=== PATIENT | female | born 1990 | race Caucasian/White ===

== ENCOUNTER 2024-12-17 05:50 | Observation (INO) ==
--- NOTE | 2024-12-14 09:18 | Anesthesiology Consultation ---
Date of Service December 14, 2024 Assessment & Plan (1) Encounter for pre-operative examination: Infectious disease screening: Per assessment on 12/14/24- No known recent infectious disease contacts or current infectious disease symptoms. Chart Review Chart Review: Acceptable Risk for Surgery (pending PAT RN Phone interview) and Patient NOT seen in Pre Admission Testing History Surgery Operation Date: 12/17/24 07:30 Proposed Procedures p Bilateral Mastectomy with Free Nipple Grafting with Suction Assisted Lipectomy of Lateral Chest - Sadaf Guy MD Height/Weight Height: 5 ft 10 in Weight: 98.883 kg Allergies Allergy/AdvReac Type Severity Reaction Status Date / Time tree nut Allergy Intermediate Nausea, Verified 12/14/24 09:50 vomiting Medications Home Medications Medication Instructions Recorded Confirmed Last Taken fluoride (sodium) 1.1 % dental 1 applic dental DAILY 05/31/23 12/14/24 Unknown cream (Denta 5000 Plus) levocetirizine 5 mg tablet 5 mg PO HS 05/31/23 12/14/24 Unknown testosterone cypionate 200 mg/mL 100 mg subcut Q7D 05/31/23 12/14/24 12/09/24 intramuscular oil Past Medical History Medical History [id number] transgender person Seasonal allergies Past Surgical History Surgical History History of wisdom tooth extraction 2014 History of wrist fracture "In Kindergarten, I broke my wrist and they had to put me under to re-break it" Social History Smoking Status: Current some day smoker Smoking cigarettes per day: 1-2 when drinking Hx Alcohol Use: Yes Hx Substance Use: Yes (Quit 8 years ago) Lab Results Anesthesia Preop Results Results Anesthesia Widget: WBC 6.76 K/ul (4.8-10.8) 11/26/24 Hgb 16.1 g/dl (12.0-16.0) H 11/26/24 Hct 44.9 % (37.0-47.0) 11/26/24 Plt 237 K/uL (130-400) 11/26/24 Na 139 mmol/L (136-145) 11/26/24 K 3.9 mmol/L (3.5-5.1) 11/26/24 Cl 106 mmol/L (98-107) 11/26/24 CO2 28 mmol/L (21-32) 11/26/24 BUN 10 mg/dl (6-23) 11/26/24 Creat 0.89 mg/dl (0.6-1.2) 11/26/24 Glucose Level 91 mg/dl (70-99(Fasting)) 11/26/24 PT 10.3 Seconds (9.0-12.0) 11/26/24 INR 0.9 (0.9-1.1) 11/26/24
--- NOTE | 2024-12-17 06:47 | History & Physical Bridge Note ---
Date of Service December 17, 2024 History & Physical Bridge Note I have examined the patient, reviewed the History & Physical and in the interval since the performance of the History & Physical I have noted the following changes of clinical significance: no changes noted
[2024-12-17] MEDS ORDERED: ATROPINE SULFATE 0.1 MG/ML 10ML SYR IV PRN (06:51)
[2024-12-17] MEDS ORDERED: PROMETHAZINE HCL 6.25 MG in SODIUM CHLORIDE 0.9% 50 ML IV PRN (06:51)
[2024-12-17] MEDS ORDERED: ONDANSETRON INJ 2 MG/ML 2 ML VIAL IV PRN (06:51)
[2024-12-17] MEDS ORDERED: HYDROmorphone INJ 1 MG/ML SYRINGE IV PRN (06:51)
[2024-12-17] MEDS ORDERED: MIDAZOLAM HCL 1 MG/ML 2ML VIAL ONE (06:54)
[2024-12-17] MEDS ORDERED: ROCURONIUM BROMIDE 10 MG/ML 5 ML VIAL IV ONE (06:54)
[2024-12-17] MEDS ORDERED: PROPOFOL IV EMULSION 10 MG/ML 20 ML VIAL IV ONE (06:54)
[2024-12-17] MEDS ORDERED: ONDANSETRON INJ 2 MG/ML 2 ML VIAL ONE (06:54)
[2024-12-17] MEDS ORDERED: DEXAMETHASONE SOD INJ 4 MG/ML VIAL ONE (06:54)
[2024-12-17] MEDS ORDERED: GLYCOPYRROLATE 0.2 MG/ML VIAL ONE (06:54)
[2024-12-17] MEDS ORDERED: LIDOCAINE 2% 2 ML VIAL/AMP(20MG/ML) INFIL ONE (06:54)
[2024-12-17] MEDS ORDERED: SUGAMMADEX SODIUM 200 MG/2 ML VIAL IV ONE (06:56)
[2024-12-17] MEDS: LR 15ML/HR IV SCH (07:03)
[2024-12-17] MEDS ORDERED: DexMEDEtomidine HCL IV 100 MCG/ML VIAL IV ONE (07:03)
[2024-12-17] MEDS ORDERED: KETAMINE HCL 10MG/ML SYR ONE (07:03)
[2024-12-17] MEDS ORDERED: BUPIVACAINE 0.5 % 5 MG/1 ML PF 10ML VIAL ONE (07:19)
[2024-12-17] MEDS: TRANEXAMIC ACID 1,000 MG **IV Pre-op IV SCH (07:40)
[2024-12-17] MEDS: EPINEPHrine INJ 1 MG/ML AMP ONE (09:35)
[2024-12-17] MEDS: LIDOCAINE 1% LOCAL 20 ML VIAL ONE (09:36)
[2024-12-17] MEDS: BUPIVACAINE 0.25% PF 30 ML VIAL ONE (09:37)
--- NOTE | 2024-12-17 10:27 | Post Operative Brief Note ---
PG Immediate Post Op with CF Date of Surgery December 17, 2024 Pre & Post Diagnosis Operation Date: 12/17/24 07:30 Pre-Op Diagnosis: Gender Affirming Surgery Post-Op Diagnosis: Gender Affirming Surgery I identified the patient and participated in the time-out.: Yes Procedure Operation Date: 12/17/24 07:30 Actual Procedures p Bilateral Mastectomy with Free Nipple Grafting with Suction Assisted Lipectomy of Lateral Chest(Bilateral) - Sadaf Guy MD Surgeon Sadaf Guy MD Environmental Services Project Manager Karen Dyer PA-C Estimated Blood Loss 15 Findings Consistent with Post-Op Diagnosis Specimens Specimen Description: Fresh A. Left Breast B. Right Breast Drains Narayan-Kruger Drain (15 fr.)
--- NOTE | 2024-12-17 11:01 | Operative Report ---
PG Post Operative Report Pre & Post Diagnosis Operation Date: 12/17/24 07:30 Pre-Op Diagnosis: Gender Affirming Surgery Post-Op Diagnosis: Gender Affirming Surgery I identified the patient and participated in the time-out.: Yes Procedure Operation Date: 12/17/24 07:30 Actual Procedures p Bilateral Mastectomy with Free Nipple Grafting with Suction Assisted Lipectomy of Lateral Chest(Bilateral) - Sadaf Guy MD Surgeon Sadaf Guy MD Quality Control Microbiologist Karen Dyer PA-C Estimated Blood Loss 15 Findings Consistent with Post-Op Diagnosis Specimens bilateral breasts to pathology Drains [id number] Anesthesia Type General Complications none Indications gender dysphoria, desiring bilateral gender affirming mastectomy Description of Procedure The risks, benefits, and alternatives of the procedure were explained to the patient, who agreed and signed consent. He was identified and marked in the preoperative holding area. I marked the incisions about 1 cm superior to the inframammary folds and marked the superior incision in an elliptical fashion in order to provide a horizontal scar pattern if possible. Nipple site was confirmed with the patient. He was brought to the operating room where he was placed under general anesthesia in supine position without incident. Surgical site was prepped and draped sterilely. A time out procedure was performed. 1% lidocaine with epinephrine was used to anesthetize the planned incisions.I began the procedure on the left side by making a small stab incision along the superior incision. Tumescent fluid consisting of lidocaine plain, epinephrine, and lactated Ringer's was infiltrated along the lateral border of the pectoralis major. Liposuction to this area was performed using a 3 mm suction cannula until there was improvement in the volume and contour of the axillary breast and fat covering lateral pectoralis. A total of 160 cc of tumescent fluid (80 cc per side) was infiltrated and approximately 125 cc of lipoaspirate was obtained. Nipple areolar complex graft was harvested. I elected to use a 28 mm cookie cutter to size the nipple areolar complex. It was harvested using a 15 blade scalpel and was defatted using a curved iris scissor. They were placed on the back table in a saline soaked sponge until I was ready to place the grafts. I began by making the inferior incision using 15 blade scalpel. Incision was deepened through dermis using electrocautery, and deepened down to the chest wall. I began raising the breast off of underlying pectoralis fascia until I could confirm that the wound could be closed without tension. I then confirmed marking of the superior incision, which was made with a 15 blade scalpel and deepened using electrocautery. The breast was passed off as specimen. Superiorly, breast was undermined to the clavicle and the superior flap was further thinned until it was of uniform thickness, approximately 2 cm in thickness and just slightly thicker than the thickness of the abdominal subcutaneous tissue. Throughout dissection, hemostasis was achieved using the bovie. I did perform some additional undermining inferiorly along the inframammary fold to facilitate closure and disrupt the inframammary fold. Prior to closure, the wound was irrigated, examined for hemostasis. A 15 Malay Justo drain was placed in the wound bed and brought out through a separate stab incision laterally.Deep dermis was closed using 2-0 Vicryl interrupted sutures, superficial dermis closed using 2-0 PDO running Quill suture, and subcuticular wound closure was performed using 3-0 Monocryl. Following closure, the nipple areolar complex was inset. I made a circular incision at the lateral border of pectoralis and just superior to the incision. This was de-epithelialized. The nipple areolar graft was inset first using 5-0 plain gut suture. An identical procedure was performed on the right side. The graft was inset using 5-0 fast absorbing suture. 6 4-0 silk tie over bolster sutures were placed, and a Xeroform and cotton bolster was placed. Sylke was applied to the incisions. Dry dressings and drain sponges were placed. A binder was placed. Procedure was tolerated well. Patient was awakened and transferred to the recovery room in satisfactory condition. Karen Dyer PA-C was present and scrubbed throughout the entire procedure. She assisted in retraction, hemostasis, and simultaneous wound closure. I attest to the content of the Intraoperative Record and any orders documented therein. Any exceptions are noted below.
[2024-12-17] MEDS ORDERED: MoRPHine SULFATE 2 MG/ML CARP IV PRN ×2 (12:00)
[2024-12-17] MEDS ORDERED: PROMETHAZINE 12.5 MG/50.5 ML BAG IV PRN (12:00)
[2024-12-17] MEDS ORDERED: diphenhydrAMINE 50 MG/ML VIAL IV PRN (12:00)
[2024-12-17] MEDS ORDERED: diphenhydrAMINE Capsule 25 MG CAP PO PRN (12:00)
[2024-12-17] MEDS: LIDOCAINE 1%/EPINEPHRINE 1:100,000 50 ML VIAL ONE (12:08)
[2024-12-17] MEDS: BUPIVACAINE LIPOSOME 1.3% 133 MG/10 ML VIAL ONE (12:08)
[2024-12-17] MEDS: ONDANSETRON INJ 2 MG/ML 2 ML VIAL IV PRN (12:15)
[2024-12-17] MEDS: ACETAMINOPHEN 325 MG TAB PO PRN (13:39)
[2024-12-17] MEDS: D5W AND 1/2NSS + 20MEQ KCL 20 MEQ/1,000 ML BAG IV SCH (13:44)
--- NOTE | 2024-12-17 14:16 | Surgery Progress Note ---
Date of Service December 17, 2024 Assessment & Plan (1) Gender dysphoria in adult: Plan: S/P top surgery. Doing well, anticipate d/c home in the AM Admission and Anticipated Discharge Date Admission Date: December 17, 2024 Carmina Ellison is s/p top surgery. He is feeling well, has good pain control and is tolerating regular diet. Physical Exam Physical Exam: binder in place. no saturation on dressings. drains with 20cc serosang output Results & Data Vital Signs (Past 12 Hours) Vital Signs Temp Pulse Pulse Pulse Resp BP BP 12/17/24 13:33 36.6 C 78 16 129/73 12/17/24 12:44 36.4 C L 79 71 20 126/80 12/17/24 12:01 74 18 118/74 12/17/24 11:45 12/17/24 11:30 36.7 C 76 18 125/75 12/17/24 11:15 36.7 C 89 14 120/70 12/17/24 11:05 62 15 111/50 L 12/17/24 10:55 62 14 107/54 L 12/17/24 10:45 62 12 99/47 L 12/17/24 10:38 36.2 C L 64 12 91/50 L 12/17/24 06:06 37.3 C 75 20 128/83 Pulse Ox O2 Del Method O2 Flow Rate 12/17/24 13:33 95 Room Air 12/17/24 12:44 96 Room Air 12/17/24 12:01 96 Room Air 12/17/24 11:45 Room Air 12/17/24 11:30 98 Room Air 12/17/24 11:15 96 Room Air 12/17/24 11:05 97 Oxymask 2 12/17/24 10:55 98 Oxymask 4 12/17/24 10:45 97 Oxymask 4 12/17/24 10:38 97 Oxymask 4 12/17/24 06:06 97 Room Air PG Care Time/CCT Total # of Minutes Spent Total Time Spent with Patient: Total time spent is greater than 50% in coordination of care (as documented) at patient's floor/unit and/or counseling patient: Coding Level of Care Code 93742 Post Operative Follow-Up Diagnoses Gender dysphoria in adult F64.0
--- NOTE | 2024-12-17 15:50 | Anesthesiology Progress Note ---
Date of Service December 17, 2024 Anesthesia Post Procedure Vital Signs Vital Signs: Temp Pulse Pulse Pulse Resp BP BP 12/17/24 15:05 36.7 C 64 16 131/77 12/17/24 13:33 36.6 C 78 16 129/73 12/17/24 12:44 36.4 C L 79 71 20 126/80 12/17/24 12:01 74 18 118/74 12/17/24 11:45 12/17/24 11:30 36.7 C 76 18 125/75 12/17/24 11:15 36.7 C 89 14 120/70 12/17/24 11:05 62 15 111/50 L 12/17/24 10:55 62 14 107/54 L 12/17/24 10:45 62 12 99/47 L 12/17/24 10:38 36.2 C L 64 12 91/50 L 12/17/24 06:06 37.3 C 75 20 128/83 Pulse Ox O2 Del Method O2 Flow Rate 12/17/24 15:05 97 Room Air 12/17/24 13:33 95 Room Air 12/17/24 12:44 96 Room Air 12/17/24 12:01 96 Room Air 12/17/24 11:45 Room Air 12/17/24 11:30 98 Room Air 12/17/24 11:15 96 Room Air 12/17/24 11:05 97 Oxymask 2 12/17/24 10:55 98 Oxymask 4 12/17/24 10:45 97 Oxymask 4 12/17/24 10:38 97 Oxymask 4 12/17/24 06:06 97 Room Air Pain Intensity Bilateral Breast: Pain Intensity: 3 Transfer of Care Handoff Completed per policy Notes Mental Status: alert / awake / arousable and participated in evaluation Patient Amnestic to Procedure: Yes Nausea / Vomiting: adequately controlled Pain: adequately controlled Airway Patency, RR, SpO2: stable & adequate BP & HR: stable & adequate Hydration State: stable & adequate Anesthetic Complications: no major complications apparent and Pt Satisfied with anesthetic care
[2024-12-17] MEDS: CETIRIZINE HCL 10 MG TABLET PO SCH (20:14)
[2024-12-18 03:40] VITALS: TEMP 97.7
[2024-12-18 07:11] VITALS: BP 121/66; RESP 18; O2SAT 96
[2024-12-18] MEDS: MULTIVITAMIN TAB PO SCH (07:43)
--- NOTE | 2024-12-18 08:32 | Surgery Progress Note ---
Date of Service December 18, 2024 Assessment & Plan (1) Gender dysphoria in adult: Plan: POD#1 s/p top surgery Doing well, dc home today Admission and Anticipated Discharge Date Admission Date: December 17, 2024 Subjective Lace had a good night, excellent pain control using acetaminophen. He is walking, tolerating regular diet. Physical Exam Physical Exam: drains with scant serosang output, incisions CDI, bolsters intact Results & Data Vital Signs (Past 12 Hours) Vital Signs Temp Pulse Resp BP Pulse Ox O2 Del Method 12/18/24 07:00 36.5 C 67 18 121/66 96 Room Air 12/18/24 03:39 36.5 C 61 17 110/62 98 Room Air 12/17/24 23:10 36.4 C L 45 L 16 141/73 H 97 Room Air PG Care Time/CCT Total # of Minutes Spent Total Time Spent with Patient: Total time spent is greater than 50% in coordination of care (as documented) at patient's floor/unit and/or counseling patient: Coding Level of Care Code 71081 Post Operative Follow-Up Diagnoses Gender dysphoria in adult F64.0
[2024-12-18 10:14] VITALS: PULSE 79
== END 2024-12-18 10:52 | disposition home or self-care (01) ==
LOC: 3E 05:50 → ASU 05:50